=== PATIENT | female | born 1955 | race Caucasian/White ===

== ENCOUNTER 2021-07-30 06:22 | Observation (INO) | payer OTHER ==
[~2021-07-30] VITALS: Ht 157.5 cm; Wt 113.4 kg
--- NOTE | ~2021-07-30 | P ---
[facility] [place] [address] PROCEDURE REPORT Name: LAVERN SALEH Room #: 208-P [facility]..#: [id number] Admission: 07/30/21 Attend Phys: Mukesh Nieves MD Discharge: Date of : 59 Report #: [id number] THIS REPORT FOR: cc: Theron Erickson Jeffrey W. DO Couchonnal,Mukesh Fernandes MD ~ DATE OF SERVICE: 07/30/2021 PREOPERATIVE DIAGNOSIS: Atrial fibrillation. POSTOPERATIVE DIAGNOSIS: Atrial fibrillation. HISTORY: The patient is a 65-year-old female with a history of AFib, who has failed recent attempts at cardioversion. She is here for AFib ablation. PROCEDURES PERFORMED: 1. Atrial fibrillation ablation, CPT code 82978. 2. Focal ablation, CPT code 55519. ANESTHESIA: The patient underwent general anesthesia with no anesthesia related complications. DESCRIPTION OF PROCEDURE: The patient underwent informed consent. She was then brought to the EP laboratory in fasting and sedated state, prepped and draped in a standard fashion. I obtained access to the right femoral vein x 3, placing an 8, 9 and 7-Mosotho short sheath using the modified Seldinger technique. Next, under fluoroscopy, a decapolar catheter was placed in the coronary sinus, ICE catheter was placed into the right atrium for intracardiac ultrasound imaging. The patient was systemically heparinized and a transseptal was performed using an SL1 sheath and a [place] needle. This was straightforward. I then exchanged the SL1 sheath for the cryosheath and the Lasso catheter was placed in the left atrium. A 3D geometry of the left atrium was created and then the cryoballoon was placed into the left atrium. At baseline, the patient was in atrial fibrillation. At the beginning of the case when I placed an ICE catheter into the right atrium, there was evidence of a trivial pericardial effusion, which had also been noted on her recent transthoracic echo. Next, I started isolating the pulmonary veins. Left superior pulmonary vein underwent a 4-minute freeze isolating at 60 seconds. The left inferior pulmonary vein underwent a 300-second freeze isolating at 167 seconds. The right superior pulmonary vein underwent 145-second freeze followed by 130-second freeze. The vein isolated during the second freeze at 21 seconds. The right inferior pulmonary vein underwent a 3-minute freeze and isolated at 21 seconds. The patient was then prepared for focal ablation with posterior wall isolation. A total of 4 freezes were performed along the posterior wall, each of [address] [address] PROCEDURE REPORT Name: LAVERN SALEH Room #: 208-P [facility].R.#: [id number] Admission: 07/30/21 Attend Phys: Mukesh Nieves MD Discharge: Date of : 59 Report #: [id number] duration. A repeat voltage map was then created. This showed that all 4 pulmonary veins were isolated and the posterior wall was also isolated. As such, the patient underwent a 200 joule synchronized cardioversion with pentecostal of sinus rhythm. There were no procedure related complications and the pericardial effusion remained trace to small in nature which was noted prior to ablation. The patient received systemic protamine. Catheters and sheaths were pulled. Hemostasis obtained. The patient awoke neurologically and hemodynamically intact. No complications. No significant bleeding. CONCLUSIONS: 1. Successful AFib ablation with isolation of the pulmonary veins. 2. Successful posterior wall isolation. By: [id number] Mukesh Nieves MD /nt
[2021-07-30 07:29] VITALS: BP 150/86
[2021-07-30] MEDS ORDERED: ELIQUIS5 MG PO (07:35)
[2021-07-30] MEDS ORDERED: ASPIRIN EC81 M1 PO (07:35)
[2021-07-30 07:36] LABS: ABSOLUTE NEUTROPHILS 7.6 thou/uL (1.4-8.2); BASOPHILS 1.1 % (0.0-2.0); EOSINOPHILS 1.8 % (0.0-3.0); HEMATOCRIT 40.6 % (37.0-47.0); HEMOGLOBIN 13.2 gm/dL (12.0-15.0); MCH 25.7 pg (26.0-34.0); MCHC 32.6 g/dL (28.0-37.0); MCV 78.9 fL (80.0-100.0); MONOCYTES 7.3 % (1.0-8.0); PLATELET COUNT 341 thou/uL (150-400); POLYS 62.8 % (36.0-66.0); RBC 5.15 mil/uL (4.20-5.00); RDW 16.1 % (10.5-14.5)
[2021-07-30] MEDS ORDERED: CARDIZEM LA360 M1 PO (07:36)
[2021-07-30] MEDS ORDERED: JARDIANCE25 MG PO (07:37)
[2021-07-30] MEDS ORDERED: ZYRTEC10 M4 PO (07:37)
[2021-07-30] MEDS ORDERED: LEVO-T50 MCG PO (07:38)
[2021-07-30] MEDS ORDERED: GLIPIZIDE 10 MG10 MG PO (07:38)
[2021-07-30] MEDS ORDERED: METFORMIN HCL500 M3 PO (07:39)
[2021-07-30] MEDS ORDERED: LISINOPRIL20 MG PO (07:39)
[2021-07-30] MEDS ORDERED: TOPROL XL100 MG PO (07:40)
[2021-07-30] MEDS ORDERED: OZEMPIC1 MG/0.71 SUBQ (07:43)
[2021-07-30] MEDS ORDERED: PROTONIX40 M4 PO (07:44)
[2021-07-30] MEDS ORDERED: ROPINIROLE HCL0.5 MG PO (07:45)
[2021-07-30] MEDS ORDERED: VITAMIN D21250 MCG PO (07:46)
[2021-07-30 07:54] LABS: CALCIUM 9.2 mg/dL (8.5-10.1); CREATININE 0.8 mg/dL (0.6-1.0); POTASSIUM 3.7 mmol/L (3.5-5.1)
[2021-07-30 07:58] LABS: ALBUMIN 3.3 g/dL (3.4-5.0); TOTAL BILIRUBIN 0.4 mg/dL (0.2-1.0)
[2021-07-30 08:32] LABS: APTT 26.5 Seconds (24.5-32.8); INR 0.94; PROTIME 10.3 Seconds (10.5-12.1)
[2021-07-30] MEDS ORDERED: PROPAFENONE 22225 M1 PO (15:33)
[2021-07-30] MEDS ORDERED: CARDIZEM CD360 MG PO (16:07)
[2021-07-30 16:30] VITALS: BP 155/89
[2021-07-30 20:15] VITALS: BP 143/82
--- NOTE | 2021-07-31 00:56 | NUR ---
NURSING NOTE; PT ALERT AND ORIENTED X4, MOVES ALL EXTREMITIES AND FOLLOWS COMMANDS. UP IN CHAIR AT START OF SHIFT, TOLERATED WITHOUT DISTRESS. RT GROIN SITE DRESSING C/D/I WITH NO DRAINAGE NOTED AND NO HEMATOMA NOTED. DENIES PAIN. ALL VS AND ASSESSMENTS CHARTED, WILL CONTINUE TO MONITOR.
[2021-07-31 04:45] VITALS: BP 151/79
[2021-07-31 07:50] VITALS: BP 123/67
[2021-07-31 10:11] VITALS: BP 123/67
--- NOTE | 2021-07-31 11:27 | NUR ---
ASSUMED CARE OF PATIENT AT 0700. PATIENT REMAINS A&OX4, ON RA, SR ON TELE. NO C/O PAIN. PATIENT TO DC HOME WITH SPOUSE. TELE AND IV DC'D AND REMOVED. PATIENTS BELONGINGS GATHERED AND PATIENT WHEELED OUT BY STAFF MEMBER TO WAITING VEHICLE. PATIENT PROGRESSED TOWARD POC.
[2021-08-11] MEDS ORDERED: PRINIVIL40 MG PO (12:54)
[2021-08-11] MEDS ORDERED: OZEMPIC1 MG/0.71 SUBQ (12:59)
[2021-08-11] MEDS ORDERED: KLOR-CON M2020 MEQ PO (12:59)
[2021-08-11] MEDS ORDERED: PROPAFENONE 22225 M1 PO (13:00)
[2021-08-11] MEDS ORDERED: LASIX 40 MG TAB40 MG PO (13:02)
== END 2021-07-31 11:40 | disposition home or self-care (01) ==
LOC: CATH 06:22 → TBA 06:58 → SJCVC 09:21 → 2N 15:35 → SJCVC 15:44 → 2N 07-31 11:40
PROVIDERS: ADMIT Internal Medicine Cardiovascular Disease; ATTEND Internal Medicine Cardiovascular Disease
DX: I48.0 Paroxysmal atrial fibrillation (principal); E11.9 Type 2 diabetes mellitus without complications; Z20.822 Contact with and (suspected) exposure to COVID-19; G47.33 Obstructive sleep apnea (adult) (pediatric); E66.01 Morbid (severe) obesity due to excess calories; K76.0 Fatty (change of) liver, not elsewhere classified; M19.90 Unspecified osteoarthritis, unspecified site; Z79.899 Other long term (current) drug therapy
CPT/HCPCS: 62110; 62900; 65020; 65040; 70005

== ENCOUNTER → 2021-08-11 | Outpatient (CLI) | payer OTHER ==
[~2021-08-11] MED LIST: ASPIRIN EC81 M1 PO; CARDIZEM CD360 MG PO; CARDIZEM LA360 M1 PO; ELIQUIS5 MG PO; GLIPIZIDE 10 MG10 MG PO; JARDIANCE25 MG PO; KLOR-CON M2020 MEQ PO; LASIX 40 MG TAB40 MG PO; LEVO-T50 MCG PO; LISINOPRIL20 MG PO; METFORMIN HCL500 M3 PO; OZEMPIC1 MG/0.71 SUBQ; PRINIVIL40 MG PO; PROPAFENONE 22225 M1 PO; PROTONIX40 M4 PO; ROPINIROLE HCL0.5 MG PO; TOPROL XL100 MG PO; VITAMIN D21250 MCG PO; ZYRTEC10 M4 PO
== END ==
LOC: SJCVCIMAG 07:53
PROVIDERS: ATTEND Nuclear Medicine Nuclear Cardiology
DX: I77.0 Arteriovenous fistula, acquired (principal); E11.9 Type 2 diabetes mellitus without complications; E03.9 Hypothyroidism, unspecified; I10 Essential (primary) hypertension; Z79.84 Long term (current) use of oral hypoglycemic drugs; Z79.82 Long term (current) use of aspirin; Z79.899 Other long term (current) drug therapy

== ENCOUNTER 2021-08-12 06:31 | Inpatient (IN) | payer OTHER ==
[2021-08-12] VITALS (14 sets, daily range): BP systolic 119–153; BP diastolic 64–82
[~2021-08-12] VITALS: Ht 157.5 cm; Wt 114.6 kg
[2021-08-13] VITALS (19 sets, daily range): BP systolic 103–146; BP diastolic 52–77
[2021-08-13 04:20] LABS: ABSOLUTE NEUTROPHILS 11.4 thou/uL (1.4-8.2); BASOPHILS 0.6 % (0.0-2.0); EOSINOPHILS 0.1 % (0.0-3.0); HEMATOCRIT 29.2 % (37.0-47.0); HEMOGLOBIN 9.6 gm/dL (12.0-15.0); MCH 26.5 pg (26.0-34.0); MCHC 32.8 g/dL (28.0-37.0); MCV 80.8 fL (80.0-100.0); MONOCYTES 8.8 % (1.0-8.0); POLYS 75.5 % (36.0-66.0); RBC 3.61 mil/uL (4.20-5.00); RDW 16.6 % (10.5-14.5); WBC 15.1 thou/uL (4.0-11.0)
[2021-08-13 04:24] LABS: PLATELET COUNT 375 thou/uL (150-400)
[2021-08-13 04:28] LABS: CALCIUM 8.5 mg/dL (8.5-10.1); CREATININE 0.9 mg/dL (0.6-1.0); MAGNESIUM 1.9 mg/dL (1.8-2.4)
[2021-08-13 04:44] LABS: POTASSIUM 3.6 mmol/L (3.5-5.1)
--- NOTE | 2021-08-13 09:14 | O ---
[facility] [place] [address] OPERATIVE REPORT Name: LAVERN SALEH Room #: 251-P ADM IN M.R.#: [id number] Admission: 08/12/21 Attend Phys: Aden James MD Discharge: Date of : 59 Report #: [id number] THIS REPORT FOR: cc: Theron Erickson Jeffrey W. 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 OPERATION: Exploration of right groin and repair of arteriovenous fistula. SURGEON: Aden James MD ANESTHESIA: General. INDICATIONS: The patient is a 65-year-old who approximately 2 weeks ago had ablation for atrial fibrillation for which several venous sheaths were placed through the right femoral vein. The patient has developed some shortness of breath, which has been treated his heart failure. The patient also has right groin pain and swelling and a noninvasive study suggests that there is an arteriovenous fistula. This is also noted on physical exam with more continuous bruit in the right groin. FINDINGS AND TECHNIQUE: After general anesthesia was established, an incision was made in the right groin, common femoral vein was identified at the inguinal ligament above the large scarred hematoma. Similarly dissection below this area of involvement allowed control of the superficial femoral artery. Dissection was continued into the area of involvement until we identified an opening in the superficial femoral artery at the junction with the common femoral artery, the entire common, deep and superficial femoral artery were identified along with its tributaries and this was dissected free of femoral vein. A small opening in the femoral vein was also identified in the midst of this scar and a second opening into the deep femoral artery was identified and repaired. When all of the artery had been exposed and controlled and all of the openings were repaired, we inspected the wound to ensure that hemostasis was satisfactory and then placed a 19 Dennis drain through a separate stab wound. The wound was then closed in layers and a Prevena dressing was applied. The patient was taken to the recovery area in good condition having tolerated the procedure well. [address] [address] OPERATIVE REPORT Name: LAVERN SALEH Room #: 251-P [facility] IN M.R.#: [id number] Admission: 08/12/21 Attend Phys: Aden James MD Discharge: Date of : 59 Report #: [id number] Strong dorsalis pedis pulse was palpable at the end of the procedure. All counts were reported as correct. <ELECTRONICALLY SIGNED> By: Aden James MD 08/13/21 0914 [id number] Aden James MD /nt
[2021-08-14 00:53] VITALS: BP 128/63
[2021-08-14 03:18] VITALS: BP 125/62
[2021-08-14 08:00] VITALS: BP 129/68
[2021-08-14 12:00] VITALS: BP 135/80
[2021-08-14 16:00] VITALS: BP 143/80
[2021-08-14 19:41] VITALS: BP 141/76
[2021-08-15 03:50] VITALS: BP 147/81
[2021-08-15 08:00] VITALS: BP 153/77
[2021-08-15 10:32] VITALS: BP 153/77
== END 2021-08-15 13:30 | disposition home or self-care (01) | DRG 253 ==
LOC: TBA 06:31 → ICU 06:31 → PRE 12:03 → ICU 12:40 → 2N 08-13 18:37
PROVIDERS: ADMIT Surgery Vascular Surgery; ATTEND Surgery Vascular Surgery
PROC: 04QK0ZZ Repair Right Femoral Artery, Open Approach (ICD-10-PCS; principal; 2021-08-13)
PROC: 0YJ Anatomical Regions, Lower Extremities, Inspection (ICD-10-PCS; principal; 2021-08-13)
DX: I77.0 Arteriovenous fistula, acquired (principal); Z68.42 Body mass index [BMI] 45.0-49.9, adult; I48.91 Unspecified atrial fibrillation; E11.9 Type 2 diabetes mellitus without complications; G47.33 Obstructive sleep apnea (adult) (pediatric); M19.90 Unspecified osteoarthritis, unspecified site; E66.9 Obesity, unspecified; I10 Essential (primary) hypertension; E03.9 Hypothyroidism, unspecified; K21.9 Gastro-esophageal reflux disease without esophagitis; Z90.710 Acquired absence of both cervix and uterus; Z90.49 Acquired absence of other specified parts of digestive tract; Z79.82 Long term (current) use of aspirin; Z79.899 Other long term (current) drug therapy
CPT/HCPCS: 10078; 10081; 47375; 48889; 50010; 50101; 50386; 50455; 50643; 50953; 51474; 56524; 56526; 56527; 56528; 56668; 56760; 57092; 58585; 58710; 62110; 62900; 70005